=== PATIENT | female | born 1955 | race Two or more races ===

== ENCOUNTER 2017-08-29 13:08 | Outpatient (CLI) | payer OTHER ==
[~2017-08-29 13:08] MED LIST: NABUMETONE500 MG PO; PERCOCET 5/3251 TAB PO
== END 2017-08-29 13:13 | disposition home or self-care (01) ==
LOC: SONOGRAMA 13:08 → MAMO-SONO 13:15
DX: E04.2 Nontoxic multinodular goiter (principal)

== ENCOUNTER 2018-02-20 11:24 | Outpatient (CLI) | payer OTHER | END 2018-02-20 11:28 | disposition home or self-care (01) | LOC: SONOGRAMA 11:24 | DX: E04.1 Nontoxic single thyroid nodule (principal) ==

== ENCOUNTER 2018-10-08 09:46 | Outpatient (CLI) | payer OTHER | END 2018-10-08 09:48 | disposition home or self-care (01) | LOC: SONOGRAMA 09:46 | DX: E04.2 Nontoxic multinodular goiter (principal) ==